=== PATIENT | female | born 1960 ===

== ENCOUNTER 2024-09-27 01:27 | Outpatient (RCR) | payer BC, SELFPAY ==
[2024-09-27] MEDS: Normal Saline Flush 10 ML SYR IVP (07:18)
[2024-09-27 07:31] LABS: CREATININE 0.7 mg/dL (0.55-1.02); Estimated GFR 98.34 (mL/min/1.73m2)
== END 2024-10-22 23:59 | disposition home or self-care (01) ==
LOC: INF 01:27
PROVIDERS: Visit Provider Nurse Practitioner Women's Health
DX: C78.6 Secondary malignant neoplasm of retroperitoneum and peritoneum (principal)
CPT/HCPCS: 36591; 82565